=== PATIENT | male | born 2000 | race Caucasian/White ===

== ENCOUNTER 2020-02-29 21:56 | Emergency (ER) | payer MEDICAID, SELFPAY ==
[2020-02-29 22:07] VITALS: BP 162/99; PULSE 110; RESP 22; TEMP 36.8; O2SAT 96; BMI 94.3
--- NOTE | 2020-02-29 22:12 | XR_ITS ---
PROCEDURE: XR CHEST PORTABLE CLINICAL HISTORY: cough COMPARISON: CR CXR CHEST(2 VIEWS-NOT PORTABLE) from 03/20/2011 FINDINGS: The cardiomediastinal silhouette and pulmonary vascularity are within normal limits. There are subtle ill-defined opacities in the right infrahilar region and right lower lobe suggestive an early pneumonic infiltrate. Right upper lung field and left lung stewart are clear. No pleural fluid. IMPRESSION: Probable early bronchopneumonia right lower lobe Dictated by: Dr. Sebastien Bui MD 03/01/2020 08:12 Dr. Sebastien Bui MD in [place] 03/01/2020 08:12
--- NOTE | 2020-02-29 22:21 | HMH.EDGENADL ---
ED Disposition Clinical Impression: Asthma with exacerbation Qualifiers: Asthma severity: mild Asthma persistence: unspecified Qualified Code(s): J45.901 - Unspecified asthma with (acute) exacerbation Disposition: Home, Self-Care Condition on Discharge: Good Instructions: DI for Shortness of Breath Referrals: PCP,No [Primary Care Provider] - - Critical Care Critical Care Time: No Attestation: On 02/29/20, the high probability of a clinically significant, sudden or life threatening deterioration of the following system(s) required my full and direct attention, intervention and personal management. The time I documented below is in addition to time spent performing reported procedures but includes the following listed in this critical care notation. Medical Decision Making - Medical Records Medical records reviewed: Yes: I reviewed the patient's medical records. - Nadir Inquiry Pt receiving controlled substance: No Vital Signs: 02/29/20 22:07 02/29/20 22:54 Temperature 98.2 F 98.2 F Temperature Source Oral Oral Pulse Rate 110 H Pulse Rate [Right Brachial] 110 H Respiratory Rate 22 18 Blood Pressure 169/125 H Blood Pressure [Right Arm] 162/99 H Blood Pressure Mean [Right Arm] 120 Blood Pressure Source Automatic Cuff Blood Pressure Source [Right Arm] Automatic Cuff Blood Pressure Position Sitting Blood Pressure Position [Right Arm] Sitting 02 Sat by Pulse Oximetry 96 Oxygen Delivery Method Room Air Room Air Orders (Tests/Meds): ED MEDICATIONS Discontinued Medications Generic Name Dose Route Start Last Admin Trade Name Freq PRN Reason Stop Dose Admin Albuterol Sulfate 6 puffs 02/29/20 22:12 02/29/20 22:24 Albuterol-Hfa 90mcg/Puff Inhaler 8gm IH 02/29/20 22:13 6 puffs ONCE ONE Administration Dexamethasone 10 mg 02/29/20 22:12 02/29/20 22:42 Dexamethasone 4mg Tablet PO 02/29/20 22:13 Not Given ONCE ONE Dexamethasone 12 mg 02/29/20 22:26 02/29/20 22:27 Dexamethasone 4mg Tablet PO 02/29/20 22:27 12 mg ONCE ONE Administration Miscellaneous 1 unit 02/29/20 22:12 02/29/20 22:25 Aerochamber/Optihaler MC 02/29/20 22:13 1 unit ONCE ONE Administration ORDERS Category Date Time Status CXR --portable [XR chest portable] Stat Exams 02/29/20 22:12 Taken Covid-19 Nasal PCR Sendout P&C Routine Lab 02/29/20 22:38 Received Medical Decision Narrative: No history of asthma presenting for shortness of breath. Patient recent URI, given his symptoms we will test him for coronavirus 19. Patient has had worsening shortness of breath the past 2 days, patient is otherwise healthy, denies any chest pain. Patient has exertional symptoms, physical exam he has wheezing bilaterally, with his history of asthma this is likely reactive airway disease exacerbation. Patient was given albuterol nebs, steroids and chest x-rays obtained due to chronicity of URI symptoms. On repeat examination patient chest x-ray demonstrated no focal consolidation concerning for pneumonia. Patient was improved on examination with no hypoxemia, tachycardia likely secondary due to medications on repeat vitals. Patient blood pressure was stable. Patient was discharged home with butyryl inhaler. Patient amenable to plan and will follow up with his primary care doctor for further work-up. General Adult HPI - General Stated complaint: SOA Time Seen by Provider: 02/29/20 22:00 Mode of Arrival: Ambulatory Limitations: No Limitations Description of Symptoms (Recalled from ER Triage Doc. by RN): SOA x 2 days, headache and light headed. - History of Present Illness HPI narrative: Male presenting for shortness of breath. Patient has had URI symptoms for the past 2 weeks,, patient has had shortness of breath has been worsening for the past 2 days. Patient has been out of his albuterol medication. Patient states that he has no fevers, chills, night sweats, chest pain. Patient has no
[2020-02-29 22:54] VITALS: BP 169/125; PULSE 110; RESP 18; TEMP 36.8; O2SAT 94
[2020-03-02 12:23] LABS: Covid-19 Nasal PCR Sendout P&C Negative
== END 2020-02-29 23:25 | disposition home or self-care (01) ==
PROVIDERS: Emergency Provider Emergency Medicine
DX: Z20.828 Contact with and (suspected) exposure to other viral communicable diseases (principal); J45.901 Unspecified asthma with (acute) exacerbation; F17.210 Nicotine dependence, cigarettes, uncomplicated
CPT/HCPCS: 71045; 99282; U0004

== ENCOUNTER 2020-03-25 23:54 | Inpatient (IN) | payer OTHER, SELFPAY ==
[2020-03-25 23:55] VITALS: BP 124/81; PULSE 142; RESP 24; TEMP 37.7; O2SAT 98; BMI 40.1
[2020-03-26] VITALS (27 sets, daily range): BP systolic 106–166; BP diastolic 47–90; PULSE 78–143; RESP 18–26; TEMP 36.8–37.7; O2SAT 88–97; BMI 40.4
--- NOTE | 2020-03-26 00:04 | PC.NURSE ---
Pt refuses IV and blood draw, states he don't trust anyone and his cousin got Razo Virus off the needle they put in him at another hospital.
--- NOTE | 2020-03-26 00:12 | XR_ITS ---
PROCEDURE: XR CHEST 2V CLINICAL HISTORY: SOA Smoker COMPARISON: CR CXR CHEST(2 VIEWS-NOT PORTABLE) from 03/20/2011 CR XR CHEST PORTABLE from 02/29/[address] ANGIO CHEST from 03/26/2020 FINDINGS: The cardiomediastinal silhouette and pulmonary vascularity are within normal limits. No lobar consolidation or collapse. There is a 8 mm granuloma in the right midlung No acute bony abnormalities. IMPRESSION: No acute findings. Dictated by: Facundo Espitia MD 03/26/2020 06:56 Facundo Espitia MD in [facility] 03/26/2020 06:56
--- NOTE | 2020-03-26 00:12 | ECG_ITS ---
APPROVED REPORT Exam: Resting ECG HR:140 bpm ECG Measurements Heart Rate 140 AXES MN 124 P 80 QRSd 88 QRS 65 QT 284 T 259 QTc 433 Conclusion Sinus tachycardia Septal infarct, age undetermined T wave abnormality, consider lateral ischemia Abnormal ECG Electronically signed by : Sav Hauser, 03/26/2020 08:38:34
--- NOTE | 2020-03-26 00:13 | PC.NURSE ---
pt refused COVID
[2020-03-26 00:25] LABS: Microscopic, Urine URINE MICROSCOPIC (MICROSCOPIC)
[2020-03-26 00:28] LABS: Appearance,Urine CLEAR (Clear); Bilirubin,Urine Negative (Negative); Blood, Urine Negative (Negative); Color,Urine YELLOW (Yellow); Glucose,Urine (UA) Negative (Negative); Ketones,Urine Negative (Negative); Leukocyte Esterase,Urine Negative (Negative); Nitrate,Urine Negative (Negative); Protein,Urine Negative (Negative); Specific Gravity, Urine 1.025 (1.005-1.030); Urobilinogen,Urine 0.2 EU/dl (0.2)
--- NOTE | 2020-03-26 00:28 | HMH.EDSOB ---
ED Disposition Clinical Impression: Tobacco use, Acute viral syndrome Obesity Qualifiers: Obesity type: due to excess calories Obesity classification: adult class 3 (BMI >= 40) Serious obesity comorbidity presence: with serious comorbidity Body mass index: BMI 40.0-44.9 Qualified Code(s): E66.01 - Morbid (severe) obesity due to excess calories; Z68.41 - Body mass index [BMI]40.0-44.9, adult Respiratory failure with hypoxia Qualifiers: Chronicity: acute Qualified Code(s): J96.01 - Acute respiratory failure with hypoxia Disposition: Admitted as Observation Condition on Discharge: Fair Referrals: PCP,No [Primary Care Provider] - - Critical Care Critical Care Time: No Attestation: On 03/25/20, the high probability of a clinically significant, sudden or life threatening deterioration of the following system(s) required my full and direct attention, intervention and personal management. The time I documented below is in addition to time spent performing reported procedures but includes the following listed in this critical care notation. Medical Decision Making - Medical Records Medical records reviewed: Yes: I reviewed the patient's medical records. - Nadir Inquiry Pt receiving controlled substance: No Vital Signs: 03/25/20 23:55 03/26/20 00:30 03/26/20 01:00 Temperature 99.8 F H Temperature Source Oral Pulse Rate Pulse Rate [Right] 142 H 140 H 143 H Respiratory Rate 24 18 25 H Blood Pressure [Right Arm] 124/81 132/80 139/85 Blood Pressure Mean [Right Arm] 95 97 103 Blood Pressure Source [Right Arm] Automatic Cuff Automatic Cuff Blood Pressure Position [Right Arm] Supine Supine 02 Sat by Pulse Oximetry 98 95 94 L Oxygen Delivery Method Room Air Room Air Room Air Oxygen Flow Rate (LPM) 03/26/20 01:30 03/26/20 01:45 03/26/20 01:46 Temperature Temperature Source Pulse Rate 112 H 111 H Pulse Rate [Right] 139 H Respiratory Rate Blood Pressure [Right Arm] 131/87 Blood Pressure Mean [Right Arm] 101 Blood Pressure Source [Right Arm] Blood Pressure Position [Right Arm] 02 Sat by Pulse Oximetry 95 Oxygen Delivery Method Oxygen Flow Rate (LPM) 03/26/20 02:30 03/26/20 03:00 03/26/20 04:00 Temperature Temperature Source Pulse Rate Pulse Rate [Right] 130 H 130 H 120 H Respiratory Rate 24 20 24 Blood Pressure [Right Arm] 121/84 106/90 L 129/47 L Blood Pressure Mean [Right Arm] 96 95 74 Blood Pressure Source [Right Arm] Blood Pressure Position [Right Arm] 02 Sat by Pulse Oximetry 92 L 93 L 92 L Oxygen Delivery Method Nasal Cannula Oxygen Flow Rate (LPM) 2 03/26/20 04:30 03/26/20 05:30 03/26/20 06:30 Temperature Temperature Source Pulse Rate Pulse Rate [Right] 117 H 115 H 115 H Respiratory Rate 24 26 H 22 Blood Pressure [Right Arm] 121/67 116/62 135/87 Blood Pressure Mean [Right Arm] 85 80 103 Blood Pressure Source [Right Arm] Blood Pressure Position [Right Arm] 02 Sat by Pulse Oximetry 90 L 90 L 90 L Oxygen Delivery Method Room Air Nasal Cannula Room Air Oxygen Flow Rate (LPM) 3 - Lab Data Lab results reviewed: Yes: I reviewed the patient's lab results. Lab Results 03/26/20 00:20: Urine Opiates Screen Negative, Urine Methadone Screen Negative, Ur Barbituates Screen Negative, Ur Phencyclidine Scrn Negative, Ur Amphetamines Screen Negative, U Benzodiazepines Scrn Negative, Urine Cocaine Screen Negative, U Marijuana (THC) Screen Negative 03/26/20 00:20: Urine Color Yellow, Urine Appearance Clear, Urine pH 6.0, Ur Specific [place] 1.025, Urine Protein Negative, Urine Glucose (UA) Negative, Urine Ketones Negative, Urine Blood Negative, Urine Nitrate Negative, Urine Bilirubin Negative, Urine Urobilinogen 0.2, Ur Leukocyte Esterase Negative, Urine WBC Occasional 03/26/20 01:34: WBC 14.3 H, RBC 5.53, Hgb 15.5, Hct 46.8, MCV 84.6, MCH 28.0, MCHC 33.1, RDW 13.5, Plt Count 312, MPV 7.7, Neut % (Auto) 80.9 H, Lymph % (Auto) 12.3,
[2020-03-26 00:32] LABS: WBC,Urine Occasional #/hpf (0-3)
[2020-03-26 00:37] LABS: Barbiturates Screen,Urine Negative ng/ml (<200)
[2020-03-26 00:38] LABS: Amphetamine/Metha Screen,Urine Negative ng/ml (<1000); Benzodiazepines Screen,Urine Negative ng/ml (<200)
[2020-03-26 00:39] LABS: Cannabinoid Screen,Urine Negative ng/ml (<50)
[2020-03-26 00:40] LABS: Cocaine Screen,Urine Negative ng/ml (<300); Methadone Screen,Urine Negative ng/ml (<300)
[2020-03-26 00:41] LABS: Opiate Screen,Urine Negative ng/ml (<300); Phencyclidine Screen,Urine Negative ng/ml (<25)
[2020-03-26 01:45] LABS: Basophils # 0.1 K/mm3 (0-0.2); Basophils % 0.3 % (0.1-2.0); Eosinophils # 0.2 K/mm3 (0.0-0.4); Eosinophils % 1.2 % (0.1-12.0); Hematocrit 46.8 % (42.0-52.0); Hemoglobin 15.5 g/dL (14.1-18.0); Lymphocytes # 1.7 K/mm3 (0.7-4.5); Lymphocytes % 12.3 % (10-50); Mean Corpuscular HGB Conc 33.1 g/dL (31.8-35.4); Mean Corpuscular Volume 84.6 fl (80-94); Mean Platelet Volume 7.7 fl (7.4-10.4); Monocytes # 0.8 K/mm3 (0.1-1.0); Monocytes % 5.3 % (1.7-9.3); Neutrophils # 11.6 K/mm3 (1.8-7.8); Neutrophils % 80.9 % (37.0-80.0); Platelet Count 312 K/mm3 (142-424); Red Blood Count 5.53 M/mm3 (4.60-6.20); Red Cell Distribution Width 13.5 % (11.5-17.5); White Blood Count 14.3 K/mm3 (4.5-13.0)
--- NOTE | 2020-03-26 01:46 | CT_ITS ---
PROCEDURE: CT ANGIO CHEST CLINCIAL INDICATION: SOA Shortness of air dyspnea, smoker COMPARISON: CR XR CHEST 2V from 03/26/2020 TECHNIQUE: IV Contrast: 70ML Isovue 370 Axial images obtained with sagittal and coronal reformats. All CT scans at the facility use one or more dose reduction, viz: automated exposure control, ma/kV adjustment per patient size (including targeted exams where dose is matched to indication, i.e. head), or iterative reconstruction technique. FINDINGS: HEART AND MEDIASTINAL STRUCTURES: There is soft tissue density in the anterior mediastinum consistent with residual thymic tissue. No central or segmental pulmonary embolus identified. The peripheral pulmonary arteries are not well opacified due to motion and less than optimal bolus timing. No evidence of aortic aneurysm or dissection. LUNGS AND PLEURAL SPACES: Patchy area of ground-glass attenuation noted in the posterior segment of the right upper lobe and in the anteromedial basilar segment of the left lower lobe. There is evidence of old granulomatous disease. Patchy infiltrate also noted in the left lower lobe medially and within the lingula. There is mild bronchial thickening. Nodular density is present along the left major fissure at 11 by 5 mm. Patchy ground-glass infiltrate also noted in the left lower lobe laterally. No effusions. No cavitation. BONY STRUCTURES: No acute bony abnormalities apparent. UPPER ABDOMEN: Unremarkable. ADDITIONAL FINDINGS: Gynecomastia IMPRESSION: 1. No evidence of central pulmonary embolus. Peripheral pulmonary arteries not well evaluated due to respiratory motion and bolus timing 2. There are a few patchy ground-glass opacities in the right upper lobe, lingula, and left lower lobe. Commonly reported imaging features of Covid19 pneumonia are present. Other processes such is influenza pneumonia and organizing pneumonia, drug toxicity, connective tissue disease, and pulmonary hemorrhage can cause a similar imaging pattern. Dictated by: Facundo Espitia MD 03/26/2020 08:25 Facundo Espitia MD in [place] 03/26/2020 08:25
[2020-03-26 01:51] LABS: Chloride 104 mmol/L (98-107); Potassium 3.5 mmoL/L (3.5-5.1); Sodium 140 mmol/L (136-145)
[2020-03-26 01:53] LABS: Alanine Aminotransferase 23 U/L (12-78); Aspartate Amino Transferase 22 U/L (17-59); Bilirubin,Unconjugated 0.1 mg/dL (0.0-1.1); Blood Urea Nitrogen 12 mg/dl (9-20); Creatinine Clearance Estimated 235 mL/min (50-200); Estimated Glomerular Filt Rate 108 ml/min (>60); GFR (African American) 130 ML/MIN (>60)
[2020-03-26 01:54] LABS: Albumin Level 4.7 g/dl (3.5-5.0); Alkaline Phosphatase 89 U/L (38-126); Bilirubin,Direct 0.2 mg/dl (0.0-0.4); Bilirubin,Indirect 0.1 mg/dL (0.0-0.9); Bilirubin,Total 0.3 mg/dl (0.2-1.3); Calcium 9.6 mg/dl (8.4-10.2); Carbon Dioxide 30 mmol/L (22.0-30.0); Glucose 119 mg/dl (74-100); Total Protein,Serum 8.2 g/dl (6.3-8.2)
[2020-03-26 01:59] LABS: C-Reactive Protein 18.2 mg/L (0-4)
[2020-03-26 02:02] LABS: Coronavirus 19 IgG Antibody Negative (Negative); Coronavirus 19 IgM Antibody Negative (Negative)
[2020-03-26 02:05] LABS: NT Pro Brain Natriuretic Pep. 42.2 pg/mL (0-125)
[2020-03-26 02:08] LABS: Troponin I < 0.01 ng/ml (0.00-0.034)
--- NOTE | 2020-03-26 02:08 | PC.NURSE ---
pt had 500 ml urine output
[2020-03-26 02:27] LABS: Erythrocyte Sedimentation Rate 13 mm/hr (0-15); Procalcitonin 0.074 ng/mL (0.0-2.0)
--- NOTE | 2020-03-26 02:40 | PC.NURSE ---
pt voided per urinal 1000ml
--- NOTE | 2020-03-26 02:57 | PC.NURSE ---
Lyndsey speaking to RANCHO at this time
--- NOTE | 2020-03-26 03:00 | PC.NURSE ---
pt voided 300ml
--- NOTE | 2020-03-26 04:20 | PC.NURSE ---
pt voided 300ml
[2020-03-26 05:06] LABS: Adenovirus,PCR Not Detected (NotDetected); Bordetella Pertussis Not Detected (NotDetected); Chlamydophila Pneumoniae, PCR Not Detected (NotDetected); Coronavirus 19, PCR Not Detected (NotDetected); Coronavirus 229E Not Detected (NotDetected); Coronavirus NL63 Not Detected (NotDetected); Coronavirus OC43 Not Detected (NotDetected); Coronovirus HKU1,PCR Not Detected (NotDetected); Human Metapneumovirus Not Detected (NotDetected); Influenza A, PCR Not Detected (NotDetected); Influenza AH1, 2009 Not Detected (NotDetected); Influenza AH1, PCR Not Detected (NotDetected); Influenza AH3,PCR Not Detected (NotDetected); Influenza B, PCR Not Detected (NotDetected); Mycoplasma Pneumoniae, PCR Not Detected (NotDetected); Parainfluenza 1, PCR Not Detected (NotDetected); Parainfluenza 2, PCR Not Detected (NotDetected); Parainfluenza 3, PCR Not Detected (NotDetected); Parainfluenza 4, PCR Not Detected (NotDetected); Respiratory Syncytial Virus Not Detected (NotDetected)
[2020-03-26 05:16] LABS: Troponin I < 0.01 ng/ml (0.00-0.034)
[2020-03-26 05:41] LABS: ABG Base Excess -1.9 mmol/L (-2.4-2.3); ABG Oxygen Saturation 89 % (90-100); ABG PCO2 46.2 mmhg (35.0-45.0); ABG PH 7.33 mmol/L (7.35-7.45); ABG PO2 57.6 mmhg (80-100); ABG TCO2 25.4 mmhg (23-27)
[2020-03-26 05:44] LABS: Allen's Test Acceptable; Oxygen 3L %; Source Right Radial
[2020-03-26 06:24] LABS: Rhinovirus/Enterovirus Detected (NotDetected)
--- NOTE | 2020-03-26 08:00 | PC.NURSE ---
report given to TRACE Jimenez at this time.
--- NOTE | 2020-03-26 08:08 | PC.NURSE ---
Pt arrived to the floor at this time.
[2020-03-26 08:17] LABS: Mycoplasma Pneumo IGM (Rapid) Non-Reactive (Non-Reactiv)
--- NOTE | 2020-03-26 11:24 | HMH.HP ---
*Admission Date: 03/26/20 *Chief complaint: SOA *History of present illness: Mr. Kate is an obese 19-year-old male with history of asthma, not on regular therapy who presented with respiratory distress to the ER today. States he has been feeling ill for the past 3 to 4 days but felt really short of breath starting yesterday. On arrival to the ER he was noted to be hypoxic and in respiratory distress. Significant restriction of airflow on exam. Chest imaging showing hyper inflation and air trapping concerning for asthma exacerbation. Started on nebulizer treatment and supplemental oxygen. Received a dose of steroid in the ER. Patient admitted to medicine for respiratory failure and further management. On exam after arriving to the floor, patient is quite fatigued but answers questions appropriately. States he is breathing somewhat better but is still quite tight on exam. Denies nausea, vomiting, fever, chest pain. Has not smoked in 24 to 48 hours due to inability to breathe. Had an old Combivent inhaler at home that he has used a few times with no significant benefit. Tried to get into see his primary care doctor (Dr. Monroy) but was unable to get in as he is not excepting new patients . Appears he has not seen his primary care doctor in quite some time. [facility] History I have reviewed the patient's past medical history: Yes Medical History: Denies:: Cancer, Diabetes Mellitus Type 1, Diabetes Mellitus Type 2, MRSA *Have you ever received a pneumonia vaccine?: No *Have you received a flu vaccine this season?: No Amputation: No - *Social History Smoking Status: Current every day smoker Tobacco Type: cigarettes # Packs/Day (cigarettes): 1 Alcohol Intake: never *Occupational Status:: unemployed *Travel in the last 8 weeks: None Family Hx:: Unable to obtain Review of Systems - Review of Systems Review of systems:: pertinent systems reviewed and negative unless documented below (14 point review of systems performed, pertinent positives and negatives as per HPI) - *Neurologic Denies headache(s), Denies seizure-like activity Meds Home Medications Medication Instructions Recorded Confirmed Type Albuterol Sulfate [Albuterol 18 gm IH Q4-6H PRN 03/26/20 03/26/20 History Sulfate Hfa] Allergies Allergy/AdvReac Type Severity Reaction Status Date / Time shrimp AdvReac Verified 03/26/20 00:09 [place] Allergy Unknown Uncoded 02/18/17 15:06 Exam Vital signs and Labs for Last 24 Hours: Temp Pulse Resp BP Pulse Ox 99.5 F 116 H 23 135/58 L 90 L 03/26/20 08:35 03/26/20 10:26 03/26/20 08:35 03/26/20 08:35 03/26/20 10:26 Laboratory Results - last 24 hr 03/26/20 00:20: Urine Opiates Screen Negative, Urine Methadone Screen Negative, Ur Barbituates Screen Negative, Ur Phencyclidine Scrn Negative, Ur Amphetamines Screen Negative, U Benzodiazepines Scrn Negative, Urine Cocaine Screen Negative, U Marijuana (THC) Screen Negative 03/26/20 00:20: Urine Color Yellow, Urine Appearance Clear, Urine pH 6.0, Ur Specific [place] 1.025, Urine Protein Negative, Urine Glucose (UA) Negative, Urine Ketones Negative, Urine Blood Negative, Urine Nitrate Negative, Urine Bilirubin Negative, Urine Urobilinogen 0.2, Ur Leukocyte Esterase Negative, Urine WBC Occasional 03/26/20 01:34: WBC 14.3 H, RBC 5.53, Hgb 15.5, Hct 46.8, MCV 84.6, MCH 28.0, MCHC 33.1, RDW 13.5, Plt Count 312, MPV 7.7, Neut % (Auto) 80.9 H, Lymph % (Auto) 12.3, [place] % (Auto) 5.3, Eos % (Auto) 1.2, Baso % (Auto) 0.3, Neut # (Auto) 11.6 H, Lymph # (Auto) 1.7, [place] # (Auto) 0.8, Eos # (Auto) 0.2, Baso # (Auto) 0.1 03/26/20 01:34: Sodium 140, Potassium 3.5, Chloride 104, Carbon Dioxide 30, Anion Gap 10.0, BUN 12, Creatinine 0.90, Estimated Creat Clear 235, Estimated GFR 108, Est GFR ( Amer) 130, Glucose 119 H, Calcium 9.6, Total Bilirubin 0.3, Direct Bilirubin 0.2, Conjugated Bilirubin 0.0, Indirect Bilirubin 0.1, Unconjugated Bilirubin 0.1, AST 22, ALT 23, Alkaline P
--- NOTE | 2020-03-26 12:25 | P.CONPHA_ITS ---
[facility] Pharmacy VTE Monitoring - Patient Demographics Admission date: 03/26/20 Report Date: 03/26/20 Time: 12:25 Allergies/Adverse Reactions: Patient Allergies shrimp Adverse Reaction (Verified 03/26/20 00:09) [place] Allergy (Unknown, Uncoded 02/18/17 15:06) Height: 1.78 m Weight: 127.658 kg Patient Problems: Current Active Problems Asthma with exacerbation (Acute) Tobacco use (Chronic) Obesity (Acute) Acute viral syndrome (Acute) Respiratory failure with hypoxia (Acute) Obesity, Class III, BMI 40-49.9 (morbid obesity) (Chronic) Viral pneumonia (Acute) - VTE Risk Labs: VTE Related Lab Results Hgb 15.5 g/dL (14.1-18.0) 03/26/20 01:34 Hct 46.8 % (42.0-52.0) 03/26/20 01:34 Plt Count 312 K/mm3 (142-424) 03/26/20 01:34 BUN 12 mg/dl (9-20) 03/26/20 01:34 Creatinine 0.90 mg/dl (0.66-1.25) 03/26/20 01:34 Estimated Creat Clear 235 mL/min (50-200) 03/26/20 01:34 VTE Score: 1 - Prophylaxis VTE Prophylaxis Ordered?: Yes Types of VTE Prophylaxis: TEDS Knee High Location of Applied Device: Bilateral Lower Extremeties - VTE Diagnosis Confirmed Treatment or plan recommended: Continue Current Treatment
--- NOTE | 2020-03-26 12:25 | HMH.PHAINT ---
MEDICATION RECONCILIATION COMPLETED ON PATIENT USING EXTERNAL FILL HISTORY FROM PHARMACY. PATIENT STATES HE ONLY USES RESCUE INHALER WHEN NEEDED. -UMM SHAFERD
--- NOTE | 2020-03-26 13:23 | PC.NURSE ---
PER DR. HELTON PT IS IN STEPDOWN AT THIS TIME. AND TO INCREASE 02 TO 6LNC BC PT REFUSES TO WEAR VAPOTHERM.
--- NOTE | 2020-03-26 17:58 | PC.NURSE ---
pt adamant about leaving. myself, and warehouse logistics manager John Flores rn, educated pt on the risk of leaving. md mayorga states he is coming to hospital to speak with pt.
--- NOTE | 2020-03-26 19:30 | HMH.DCSUM ---
General - General Admission date:: 03/26/20 Discharge date: 03/26/20 HPI HPI: Mr. Kate is an obese 19-year-old male with history of asthma, not on regular therapy who presented with respiratory distress to the ER today. States he has been feeling ill for the past 3 to 4 days but felt really short of breath starting yesterday. On arrival to the ER he was noted to be hypoxic and in respiratory distress. Significant restriction of airflow on exam. Chest imaging showing hyper inflation and air trapping concerning for asthma exacerbation. Started on nebulizer treatment and supplemental oxygen. Received a dose of steroid in the ER. Patient admitted to medicine for respiratory failure and further management. On exam after arriving to the floor, patient is quite fatigued but answers questions appropriately. States he is breathing somewhat better but is still quite tight on exam. Denies nausea, vomiting, fever, chest pain. Has not smoked in 24 to 48 hours due to inability to breathe. Had an old Combivent inhaler at home that he has used a few times with no significant benefit. Tried to get into see his primary care doctor (Dr. Monroy) but was unable to get in as he is not excepting new patients . Appears he has not seen his primary care doctor in quite some time. Hospital Course Hospital Course: Mr. Kate was admited with acute hypoxemic respiratory failure 2/2 asthma exacerbation from a viral pneumonia. Started on Supplemental O2, Dexamethasone, scheduled Nebs, and 2g magnesium IV x 1. Initial exam this morning after admission with somnolence and significant dyspnea. Responded to therapy through the day. When it came time for the patient's to leave at the end of visitation hours, pt became irrational and refused to stay if his was not allowed to stay. Extensive discussion by multiple members of the care team including Physician (myself), Nurse, and Principal Consultant with the patient and his in regard to his tenuous medical status, continued O2 requirements, and high risk for worsening respiratory failure were unsuccessful in convincing the patient of his necessity to stay for continued treatment. He was adamant that he was going home, even though he continued to require O2, if he could not have his stay. He stated he would come back if he got worse. Stated he felt better and was fine at home when he felt this good . Vital at time of discussion and decision to leave AMA were: RR 24, HR 125, SpO2 86% RA. Pt signed out AMA. Objective Vital signs: Temp Pulse Resp BP Pulse Ox 98.2 F 78 24 114/65 97 03/26/20 16:00 03/26/20 18:00 03/26/20 16:00 03/26/20 18:00 03/26/20 18:00 Narrative: dyspneic, agitated. Satting 93% on 4L NC O2; desatted to mid 80s on RA, tachypneic and tachycardic. Alert and oriented. Anxious with poor insight Results Labs on day of discharge: Labs from last 24 hours 03/26/20 03/26/20 03/26/20 05:31 05:01 04:48 WBC RBC Hgb Hct MCV MCH MCHC RDW Plt Count MPV Neut % (Auto) Lymph % (Auto) [place] % (Auto) Eos % (Auto) Baso % (Auto) Neut # (Auto) Lymph # (Auto) [place] # (Auto) Eos # (Auto) Baso # (Auto) ESR Specimen Source Right radial O2 % 3l ABG pH 7.33 L ABG pCO2 46.2 H ABG pO2 57.6 L ABG HCO3 24.0 ABG Total CO2 25.4 ABG O2 Saturation 89 L ABG Base Excess -1.9 Facundo Test Acceptable Sodium Potassium Chloride Carbon Dioxide Anion Gap BUN Creatinine Estimated Creat Clear Estimated GFR Est GFR ( Amer) Glucose Calcium Total Bilirubin Direct Bilirubin Conjugated Bilirubin Indirect Bilirubin Unconjugated Bilirubin AST ALT Alkaline Phosphatase Troponin I < 0.01 C-Reactive Protein NT-Pro-B Natriuret Pep Total Protein Albumin Procalcitonin Urine Color U
== END 2020-03-26 18:32 | disposition home or self-care (01) | DRG 189 ==
LOC: ER 03-26 07:12 → 2ND 03-26 10:35
PROVIDERS: Admitting Provider Internal Medicine Adolescent Medicine; Emergency Provider Emergency Medicine; Visit Provider Internal Medicine Adolescent Medicine
DX: J96.01 Acute respiratory failure with hypoxia (principal); J12.9 Viral pneumonia, unspecified; J45.901 Unspecified asthma with (acute) exacerbation; Z68.41 Body mass index [BMI] 40.0-44.9, adult; Z72.0 Tobacco use; E66.01 Morbid (severe) obesity due to excess calories
CPT/HCPCS: 71046; 71275; 80048; 80076; 80305; 81001; 82803; 83880; 84145; 84484; 85025; 85651; 86140; 86328; 86738; 87581; 87633; 87798; 93005; 94640; 96365; 96375; 99285; J0456; J2405; Q9967; U0003

== ENCOUNTER 2020-03-26 22:37 | Emergency (ER) | payer OTHER, SELFPAY ==
[2020-03-26 22:34] VITALS: BP 129/89; PULSE 120; RESP 26; TEMP 37.6; O2SAT 85; BMI 40.1
--- NOTE | 2020-03-26 22:42 | ECG_ITS ---
APPROVED REPORT Exam: Resting ECG HR:115 bpm ECG Measurements Heart Rate 115 AXES TN 122 P 76 QRSd 90 QRS 70 QT 324 T 65 QTc 448 Conclusion Sinus tachycardia Nonspecific T wave abnormality Abnormal ECG Electronically signed by : Sav Hauser, 03/27/2020 14:15:51
--- NOTE | 2020-03-26 22:42 | XR_ITS ---
PROCEDURE: XR CHEST 2V CLINICAL HISTORY: SOA Shortness of air, low O2, smoker COMPARISON: CR CXR CHEST(2 VIEWS-NOT PORTABLE) from 03/20/2011 CR XR CHEST PORTABLE from 02/29/[address] ANGIO CHEST from 03/26/2020 CR XR CHEST 2V from 03/26/2020 FINDINGS: Normal heart size. There has been interval development of subcutaneous emphysema in the neck on both sides and in the upper chest. No obvious pneumothorax.. Nodular opacity is present in the right midlung consistent with a granuloma. No lobar consolidation or collapse. Normal heart size. No acute bony abnormalities. IMPRESSION: Interval development of subcutaneous emphysema in the neck and upper chest. The ER was notified of this finding 03/28/2020 at 6:17 a.m. Dictated by: Facundo Espitia MD 03/27/2020 06:18 Facundo Espitia MD in [place] 03/27/2020 06:18
[2020-03-26 23:00] VITALS: BP 132/88; PULSE 108; RESP 24; O2SAT 95
[2020-03-26 23:15] LABS: Basophils % 0.1 % (0.1-2.0); Eosinophils # 0.2 K/mm3 (0.0-0.4); Eosinophils % 0.7 % (0.1-12.0); Hematocrit 47.9 % (42.0-52.0); Hemoglobin 16.3 g/dL (14.1-18.0); Lymphocytes # 1.3 K/mm3 (0.7-4.5); Lymphocytes % 5.2 % (10-50); Mean Corpuscular Hemoglobin 28.6 pg (27.0-31.2); Mean Corpuscular Volume 84.1 fl (80-94); Mean Platelet Volume 7.7 fl (7.4-10.4); Monocytes % 3.8 % (1.7-9.3); Neutrophils # 22.7 K/mm3 (1.8-7.8); Neutrophils % 90.2 % (37.0-80.0); Platelet Count 320 K/mm3 (142-424); Red Cell Distribution Width 13.4 % (11.5-17.5)
[2020-03-26 23:19] LABS: White Blood Count 25.2 K/mm3 (4.5-13.0)
[2020-03-26 23:20] LABS: MANUAL DIFFERENTIAL MANUAL DIFFERENTIAL (MANUAL DIFF)
[2020-03-26 23:30] VITALS: BP 139/88; PULSE 105; RESP 24; O2SAT 95
[2020-03-26 23:31] LABS: Alanine Aminotransferase 31 U/L (12-78); Albumin/Globulin Ratio 1.3 (1.1-1.8); Alkaline Phosphatase 96 U/L (38-126); Anion Gap 11.6 mEq/L (5-15); Aspartate Amino Transferase 63 U/L (17-59); Bilirubin,Total 0.4 mg/dl (0.2-1.3); Blood Urea Nitrogen 15 mg/dl (9-20); Calcium 10.3 mg/dl (8.4-10.2); Carbon Dioxide 28 mmol/L (22.0-30.0); Chloride 104 mmol/L (98-107); Creatinine Clearance Estimated 302 mL/min (50-200); Estimated Glomerular Filt Rate 144 ml/min (>60); GFR (African American) 174 ML/MIN (>60); Glucose 141 mg/dl (74-100); Potassium 4.6 mmoL/L (3.5-5.1); Sodium 139 mmol/L (136-145)
[2020-03-26 23:37] LABS: C-Reactive Protein 51.4 mg/L (0-4)
[2020-03-26 23:44] LABS: Erythrocyte Sedimentation Rate 10 mm/hr (0-15)
--- NOTE | 2020-03-26 23:44 | HMH.EDSOB ---
ED Disposition Clinical Impression: Acute viral syndrome Asthma with exacerbation Qualifiers: Asthma severity: moderate Asthma persistence: unspecified Qualified Code(s): J45.901 - Unspecified asthma with (acute) exacerbation Obesity Qualifiers: Obesity type: due to excess calories Obesity classification: adult class 3 (BMI >= 40) Serious obesity comorbidity presence: with serious comorbidity Body mass index: BMI 40.0-44.9 Qualified Code(s): E66.01 - Morbid (severe) obesity due to excess calories; Z68.41 - Body mass index [BMI]40.0-44.9, adult Disposition: Left Against Medical Advice Condition on Discharge: Fair Instructions: DI for Shortness of Breath Additional Instructions: use meds and see pcp for follow up this week and no smoking Referrals: PCP,No [Primary Care Provider] - - Critical Care Critical Care Time: No Attestation: On 03/26/20, the high probability of a clinically significant, sudden or life threatening deterioration of the following system(s) required my full and direct attention, intervention and personal management. The time I documented below is in addition to time spent performing reported procedures but includes the following listed in this critical care notation. Medical Decision Making - Medical Records Medical records reviewed: Yes: I reviewed the patient's medical records. - Andir Inquiry Pt receiving controlled substance: No Vital Signs: 03/26/20 22:34 03/26/20 23:00 03/26/20 23:30 Temperature 99.6 F Temperature Source Oral Pulse Rate Pulse Rate [Right] 120 H 108 H 105 H Respiratory Rate 26 H 24 24 Blood Pressure [Right Arm] 129/89 132/88 139/88 Blood Pressure Mean [Right Arm] 102 102 105 Blood Pressure Source [Right Arm] Automatic Cuff Automatic Cuff Blood Pressure Position [Right Arm] Supine Supine 02 Sat by Pulse Oximetry 85 L 95 95 Oxygen Delivery Method Room Air Nasal Cannula Nasal Cannula Oxygen Flow Rate (LPM) 2 2 03/27/20 00:00 03/27/20 00:30 03/27/20 01:00 Temperature Temperature Source Pulse Rate Pulse Rate [Right] 109 H 102 H 104 H Respiratory Rate 23 24 22 Blood Pressure [Right Arm] 127/84 131/80 141/70 H Blood Pressure Mean [Right Arm] 98 97 93 Blood Pressure Source [Right Arm] Automatic Cuff Automatic Cuff Automatic Cuff Blood Pressure Position [Right Arm] Supine Supine Supine 02 Sat by Pulse Oximetry 94 L 94 L 94 L Oxygen Delivery Method Nasal Cannula Nasal Cannula Nasal Cannula Oxygen Flow Rate (LPM) 2 2 2 03/27/20 01:30 03/27/20 01:52 Temperature Temperature Source Pulse Rate 113 H Pulse Rate [Right] 113 H Respiratory Rate 24 Blood Pressure [Right Arm] 137/78 Blood Pressure Mean [Right Arm] 97 Blood Pressure Source [Right Arm] Automatic Cuff Blood Pressure Position [Right Arm] Supine 02 Sat by Pulse Oximetry 88 L Oxygen Delivery Method Nasal Cannula Oxygen Flow Rate (LPM) 2 - Lab Data Lab results reviewed: Yes: I reviewed the patient's lab results. Lab Results 03/26/20 23:04: WBC 25.2 H* D, RBC 5.70, Hgb 16.3, Hct 47.9, MCV 84.1, MCH 28.6, MCHC 34.0, RDW 13.4, Plt Count 320, MPV 7.7, Neut % (Auto) 90.2 H, Lymph % (Auto) 5.2 L, [place] % (Auto) 3.8, Eos % (Auto) 0.7, Baso % (Auto) 0.1, Neut # (Auto) 22.7 H, Lymph # (Auto) 1.3, [place] # (Auto) 1.0, Eos # (Auto) 0.2, Baso # (Auto) 0.0, Total Counted 100, Neutrophils % (Manual) 80 H, Band Neutrophils % 6.0, Lymphocytes % (Manual) 12, Monocytes % (Manual) 2, Platelet Estimate Normal, RBC Morphology Normal 03/26/20 23:04: Sodium 139, Potassium 4.6 D, Chloride 104, Carbon Dioxide 28, Anion Gap 11.6, BUN 15, Creatinine 0.70 D, Estimated Creat Clear 302 H, Estimated GFR 144, Est GFR ( Amer) 174 D, Glucose 141 H, Calcium 10.3 H, Total Bilirubin 0.4, AST 63 H D, ALT 31 D, Alkaline Phosphatase 96, Troponin I < 0.01, C-Reactive Protein 51.4 H D, Total Protein 9.0 H, Albumin 5.0, Globulin 4.0 H, Albumin/Globulin Ratio 1.3 03/26/20 23:04: ESR 10 03/26/20 23:04: Procalcit
[2020-03-26 23:52] LABS: Procalcitonin 0.067 ng/mL (0.0-2.0)
[2020-03-26 23:54] LABS: Troponin I < 0.01 ng/ml (0.00-0.034)
[2020-03-27] VITALS: BP 127/84; PULSE 109; RESP 23; O2SAT 94
[2020-03-27 00:02] LABS: ABG Base Excess 0.7 mmol/L (-2.4-2.3); ABG HCO3 25.7 mmhg (22.0-26.0); ABG Oxygen Saturation 73 % (90-100); ABG PCO2 43.7 mmhg (35.0-45.0); ABG PH 7.39 mmol/L (7.35-7.45)
[2020-03-27 00:10] LABS: Allen's Test Acceptable; Oxygen 2L NC %; Source Right Radial
[2020-03-27 00:30] VITALS: BP 131/80; PULSE 102; RESP 24; O2SAT 94
[2020-03-27 01:00] VITALS: BP 141/70; PULSE 104; RESP 22; O2SAT 94
[2020-03-27 01:30] VITALS: BP 137/78; PULSE 113; RESP 24; O2SAT 88
[2020-03-27 01:32] LABS: Lymphocytes % 12 % (10-50); Monocytes % 2 % (2-9); Neutrophils % 80 % (42-76); Platelet Estimate Normal; RBC Morphology Normal; Total Cells Counted 100
[2020-03-27 01:52] VITALS: PULSE 113
--- NOTE | 2020-03-27 02:15 | PC.NURSE ---
took patient off oxygen at this time.
--- NOTE | 2020-03-27 02:17 | PC.NURSE ---
Lyndsey speaking to Eliezer at this time
--- NOTE | 2020-03-27 02:29 | PC.NURSE ---
Dr Solorio at bedside speaking with pt about admission, pt refuses to be admitted at this time, the dangers of leaving and the dangers of low oxygen level was explained to the pt by Dr Solorio. Pt states he understands and wants to leave AMA.
--- NOTE | 2020-03-27 02:34 | PC.NURSE ---
Respiratory therapist at bedside giving education on inhaler use with spacer.
[2020-03-27 02:36] LABS: Troponin I < 0.01 ng/ml (0.00-0.034)
--- NOTE | 2020-03-27 02:47 | PC.NURSE ---
Pt still insists on leaving even with a low oxygen level, the risks were again explained to pt of signing out AMA. Pt states he understands the danger and signed the AMA papers and left.
[2020-03-27 02:49] VITALS: BP 137/78; PULSE 113; RESP 24; TEMP 37.6; O2SAT 84
--- NOTE | 2020-03-27 02:52 | PC.NURSE ---
Pt DC'd his own IV and left AMA, refused DC vitals, last known vitals charted
--- NOTE | 2020-03-27 16:37 | PC.NURSE ---
attempted to call patient r/t x-ray findings. No answer
== END 2020-03-27 02:53 | disposition left against medical advice (07) ==
PROVIDERS: Emergency Provider Emergency Medicine
DX: B34.9 Viral infection, unspecified (principal); J45.901 Unspecified asthma with (acute) exacerbation; E66.01 Morbid (severe) obesity due to excess calories; F17.210 Nicotine dependence, cigarettes, uncomplicated; Z68.41 Body mass index [BMI] 40.0-44.9, adult
CPT/HCPCS: 71046; 80053; 82803; 84145; 84484; 85007; 85025; 85651; 86140; 93005; 96374; 96375; 99284

== ENCOUNTER 2020-11-07 12:50 | Emergency (ER) | payer OTHER, MEDICAID, SELFPAY ==
[2020-11-07 14:38] VITALS: BP 0/0; PULSE 0; RESP 0; TEMP -17.7; TEMP 0
== END 2020-11-07 14:39 | disposition left against medical advice (07) ==
LOC: UTC 12:53
PROVIDERS: Emergency Provider Nurse Practitioner Family
DX: Z53.21 Procedure and treatment not carried out due to patient leaving prior to being seen by health care provider (principal)

== ENCOUNTER 2021-09-30 16:53 | Emergency (ER) | payer OTHER, SELFPAY ==
[2021-09-30 16:53] VITALS: BP 144/90; PULSE 93; RESP 15; TEMP 37.1; O2SAT 97; BMI 37.6
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
--- NOTE | 2021-09-30 17:20 | PC.NURSE ---
Provided pt with dental balls.
[2021-09-30 17:27] VITALS: BP 139/90; PULSE 101; RESP 15; TEMP 37.1; O2SAT 94
== END 2021-09-30 17:31 | disposition home or self-care (01) ==
PROVIDERS: Emergency Provider Emergency Medicine
DX: K04.7 Periapical abscess without sinus (principal)
CPT/HCPCS: 99283

== ENCOUNTER 2021-11-24 22:43 | Emergency (ER) | payer OTHER, SELFPAY ==
[2021-11-24 22:44] VITALS: BP 137/97; PULSE 100; RESP 19; TEMP 36.8; O2SAT 98; BMI 37.3
--- NOTE | 2021-11-24 22:57 | CT_ITS ---
PROCEDURE INFORMATION: Exam: CT Head Without Contrast Exam date and time: 11/24/2021 11:35 PM Age: 21 years old Clinical indication: Mass, lump, or localized swelling; Face; Additional info: R mandibular tooth pain, retro-ocular pain TECHNIQUE: Imaging protocol: Computed tomography of the head without contrast. Radiation optimization: All CT scans at this facility use at least one of these dose optimization techniques: automated exposure control; mA and/or kV adjustment per patient size (includes targeted exams where dose is matched to clinical indication); or iterative reconstruction. COMPARISON: No relevant prior studies available. FINDINGS: Brain: No evidence of mass effect or midline shift. No focal areas of abnormal attenuation. The cash/white matter interfaces are preserved. The basal cisterns are patent. Cerebral ventricles: No ventriculomegaly. Paranasal sinuses: Visualized sinuses are unremarkable. No fluid levels. Mastoid air cells: Visualized mastoid air cells are well aerated. Bones/joints: No acute fracture. Temporomandibular joint are unremarkable. Soft tissues: Mild subcutaneous fat stranding and soft tissue swelling along the included portion of the right aspect of the face. No abscess collections identified in the included images. IMPRESSION: 1. No CT evidence of intracranial hemorrhage, mass effect, midline shift or hydrocephalus. 2. Mild subcutaneous fat stranding and soft tissue swelling along the included portion of the right aspect of the face. No abscess collections identified in the included images.
--- NOTE | 2021-11-24 22:57 | CT_ITS ---
PROCEDURE INFORMATION: Exam: CT Neck With Contrast Exam date and time: 11/24/2021 11:39 PM Age: 21 years old Clinical indication: Pain; Other: Tooth; Additional info: R mandible and tooth pain TECHNIQUE: Imaging protocol: Computed tomography of the neck with contrast. Radiation optimization: All CT scans at this facility use at least one of these dose optimization techniques: automated exposure control; mA and/or kV adjustment per patient size (includes targeted exams where dose is matched to clinical indication); or iterative reconstruction. Contrast material: ISOVUE; Contrast volume: 75 ml; Contrast route: IV; COMPARISON: CT HEAD/BRAIN WO CON 11/24/2021 11:35 PM FINDINGS: Paranasal sinuses: Minimal mucosal thickening of the maxillary sinuses bilaterally. Dental: Extensive dental erosions compatible with caries. Small periapical cysts along the root of the left 1st mandibular molar. Pharynx: Unremarkable. No significant tonsillar enlargement. Larynx: Unremarkable. Epiglottis is normal. Prevertebral and retropharyngeal spaces: Unremarkable. Salivary glands: Normal. Glands are normal in size. Thyroid: Normal. No enlarged or calcified nodules. Lymph nodes: Bilateral level 1 and level 2 reactive lymphadenopathy. Trachea: Visualized trachea is unremarkable. Lungs: Unremarkable as visualized. Bones/joints: Unremarkable. No acute fracture. Soft tissues: Fat stranding and subcutaneous soft tissue swelling noted along the right aspect of the face. No fluid collections identified. IMPRESSION: 1. Extensive dental erosions compatible with caries. Small periapical cysts along the root of the left 1st mandibular molar. 2. Fat stranding and subcutaneous soft tissue swelling noted along the right aspect of the face. No fluid collections identified. 3. Bilateral level 1 and level 2 reactive lymphadenopathy.
--- NOTE | 2021-11-24 22:57 | CT_ITS ---
PROCEDURE INFORMATION: Exam: CT Maxillofacial With Contrast Exam date and time: 11/24/2021 11:43 PM Age: 21 years old Clinical indication: Eye pain and face pain and jaw pain and maxilla pain; Right; Additional info: R mandibular tooth pain, retro-ocular pain R TECHNIQUE: Imaging protocol: Computed tomography of the face with contrast. Radiation optimization: All CT scans at this facility use at least one of these dose optimization techniques: automated exposure control; mA and/or kV adjustment per patient size (includes targeted exams where dose is matched to clinical indication); or iterative reconstruction. Contrast material: ISOVUE; Contrast volume: 75 ml; Contrast route: IV; COMPARISON: CT HEAD/BRAIN WO CON 11/24/2021 11:35 PM FINDINGS: Orbital cavities: Orbits are normal. Orbital contents are unremarkable. Bones/joints: No acute fracture. Paranasal sinuses: Mild mucosal thickening of the inferior aspect of the maxillary sinuses bilaterally. No air-fluid levels. Lymph nodes: Bilateral level 1 and level 2 reactive lymphadenopathy. Soft tissues: Unremarkable. Dental: Extensive dental erosions compatible with caries. IMPRESSION: 1. Extensive dental erosions compatible with caries. 2. No abscess collection identified. 3. Mild mucosal thickening of the inferior aspect of the maxillary sinuses bilaterally. 4. Bilateral level 1 and level 2 reactive lymphadenopathy.
--- NOTE | 2021-11-24 23:01 | HMH.EDGENADL ---
Discharge Plan Disposition Patient Disposition: Xfer Short-Term Hosp Chief Complaint: Dental/Oral Prescriptions Prescriptions: No Action amoxicillin-pot clavulanate 1 EACH tablet 500 mg PO TID Qty: 21 0RF chlorhexidine gluconate 473 ML mouthwash 15 ml MM BID Qty: 150 0RF albuterol sulfate 8.5 GM HFA aerosol inhaler 2 puffs IH Q4HP PRN (Reason: Shortness Of Breath Or Wheezing) Referrals Follow up/Referrals: Provider,Referral, MD [Primary Care Provider] - See instructions Clinical Impressions Clinical Impression: Change in vision, Dental caries Discharge ED Provider: Cordell Abdi General Adult HPI General Chief complaint: Dental/Oral Stated complaint: dental pain Time Seen by Provider: 11/24/21 23:02 History of Present Illness HPI narrative: Patient is a 21-year-old male with past medical history of prior dental caries who presents emergency department for evaluation of tooth pain, jaw pain, retro-ocular pain. Patient states that has been hurting for some time however over the last 48 hours he had acute worsening of his right mandibular molar. The jaw is tender to palpation, he has visual blurriness on the right, lancinating pain shooting from his jaw back towards his ear. Patient states he is able to range his neck, no vomiting, no other headache, no left visual blurriness, no other acute complaints at this time. Symptoms are refractory to Tylenol. Related Data Home Medications Medication Instructions Recorded Confirmed albuterol sulfate 90 mcg/actuation 2 puffs IH Q4HP PRN Shortness Of 03/26/20 03/26/20 aerosol inhaler Breath Or Wheezing Previous Rx's Medication Instructions Recorded amoxicillin 500 mg-potassium 500 mg PO TID #21 tabs 09/30/21 clavulanate 125 mg tablet chlorhexidine gluconate 0.12 % 15 ml mucous membrane BID #150 mL 09/30/21 mouthwash Allergies Allergy/AdvReac Type Severity Reaction Status Date / Time shrimp AdvReac Verified 03/26/20 00:09 [place] Allergy Unknown Uncoded 02/18/17 15:06 [facility] Social History Smoking Status: Current every day smoker tobacco type: cigarettes packs per day: 1 alcohol intake: never current occupational status: employed Travel in the last 8 weeks: None household members: significant other caffeine: No ROS Obtained: Yes All systems reviewed & no additional complaints except as documented Physical Exam General General appearance: alert and in no apparent distress Head Head exam: atraumatic and normocephalic Eye Eye exam: Present PERRL, EOMI and other (20/200R 20/70L) ENT ENT exam: Present mucous membranes moist and other (Dental carry of the right mandibular molar, exquisite to patient.) Neck Neck exam: Present normal inspection, full ROM and tenderness (Severe tenderness over the right angle of the mandible and right submandibular space) Chest Chest inspection: Present normal inspection and symmetric chest wall rise Respiratory Respiratory exam: Present normal lung sounds bilaterally; Absent respiratory distress Cardiovascular Cardiovascular exam: Present regular rate and normal rhythm Abdominal Exam Abdominal exam: Present soft; Absent tenderness Extremities Exam Extremities exam: Present normal inspection Neurological Exam Neurological exam: Present alert, oriented X3, CN II-XII intact and normal gait Psychiatric Psychiatric exam: Present normal affect Skin Skin exam: Present warm and dry Medical Decision Making Nadir Inquiry Pt receiving controlled substance: No Vital Signs: 11/24/21 22:44 Temperature 98.3 F Temperature Source Oral Pulse Rate [Right] 100 H Respiratory Rate 19 Blood Pressure [Right Arm] 137/97 H Blood Pressure Mean [Right Arm] 110 Blood Pressure Source [Right Arm] Automatic Cuff 02 Sat by Pulse Oximetry 98 Oxygen Delivery Method Room Air Lab Data Lab Results 11/24/21 23:22: WBC 10.1, RBC 5.47, Hgb 15.7, Hct 47.8, MCV 87.3, MCH 28.6, MCHC 32.8, RDW
[2021-11-24 23:27] VITALS: BMI 39.0
--- NOTE | 2021-11-24 23:32 | PC.NURSE ---
Patient states that he is allergic to shrimp but not shellfish, and has tolerated ct contrast in the past. Patient is being premedicated per md order with 20mg famotidine IV, 125mg solumedrol IV and 50mg benadryl Iv.
[2021-11-24 23:33] LABS: Basophils # 0.1 K/mm3 (0-0.2); Basophils % 1.2 % (0.1-2.0); Eosinophils # 0.2 K/mm3 (0.0-0.4); Eosinophils % 1.8 % (0.1-12.0); Hematocrit 47.8 % (42.0-52.0); Hemoglobin 15.7 g/dL (14.1-18.0); Lymphocytes # 2.9 K/mm3 (0.7-4.5); Lymphocytes % 28.6 % (10-50); Mean Corpuscular HGB Conc 32.8 g/dL (31.8-35.4); Mean Corpuscular Hemoglobin 28.6 pg (27.0-31.2); Mean Corpuscular Volume 87.3 fl (80-94); Mean Platelet Volume 7.8 fl (7.4-10.4); Monocytes # 0.6 K/mm3 (0.1-1.0); Monocytes % 5.7 % (1.7-9.3); Neutrophils # 6.3 K/mm3 (1.8-7.8); Neutrophils % 62.6 % (37.0-80.0); Platelet Count 390 K/mm3 (142-424); Red Blood Count 5.47 M/mm3 (4.60-6.20); Red Cell Distribution Width 13.9 % (11.5-17.5); White Blood Count 10.1 K/mm3 (4.8-10.8)
[2021-11-24 23:40] LABS: Anion Gap 12.9 mEq/L (5-15); Blood Urea Nitrogen 7 mg/dl (9-20); Calcium 9.5 mg/dl (8.4-10.2); Carbon Dioxide 30 mmol/L (22.0-30.0); Chloride 102 mmol/L (98-107); Creatinine Clearance Estimated 260 mL/min (50-200); Estimated Glomerular Filt Rate 121 ml/min (>60); GFR (African American) 146 ML/MIN (>60); Glucose 98 mg/dl (74-100); Potassium 3.9 mmoL/L (3.5-5.1); Sodium 141 mmol/L (136-145)
[2021-11-24 23:45] LABS: C-Reactive Protein 7.4 mg/L (0-4)
--- NOTE | 2021-11-25 00:50 | PC.NURSE ---
on phone with Dr. Gan, opthamology at .
[2021-11-25 01:00] VITALS: BP 124/75; PULSE 87; RESP 17; TEMP 36.8; O2SAT 97
--- NOTE | 2021-11-25 01:01 | PC.NURSE ---
called radiology to prepare disc of ct images for [facility]
--- NOTE | 2021-11-25 01:06 | PC.NURSE ---
pt refuses to be transferred to [facility], is demanding to leave. s/w pt, he continues to refuse transfer.
--- NOTE | 2021-11-25 01:06 | PC.NURSE ---
spoke with patient about transfer to [facility], patient refused and is choosing to leave AMA. [facility] notified.
== END 2021-11-25 01:30 | disposition short-term general hospital (02) ==
PROVIDERS: Emergency Provider Emergency Medicine
DX: H53.9 Unspecified visual disturbance (principal); K02.9 Dental caries, unspecified
CPT/HCPCS: 70450; 70487; 70491; 80048; 85025; 86140; 96374; 96375; 99284; Q9967

== ENCOUNTER 2021-12-17 16:26 | Emergency (ER) | payer OTHER, SELFPAY ==
[2021-12-17 16:27] VITALS: BP 149/107; PULSE 69; RESP 18; O2SAT 98; BMI 37.3
--- NOTE | 2021-12-17 17:27 | PC.NURSE ---
MS AT BEDSIDE
--- NOTE | 2021-12-17 17:29 | HMH.EDGENADL ---
Discharge Plan Disposition Patient Disposition: Home, Self-Care Prescriptions Prescriptions: New amoxicillin-pot clavulanate 875-125 mg tablet 1 tab PO BID Qty: 10 0RF No Action amoxicillin-pot clavulanate 1 EACH tablet 500 mg PO TID Qty: 21 0RF chlorhexidine gluconate 473 ML mouthwash 15 ml MM BID Qty: 150 0RF albuterol sulfate 8.5 GM HFA aerosol inhaler 2 puffs IH Q4HP PRN (Reason: Shortness Of Breath Or Wheezing) amoxicillin-pot clavulanate 875-125 mg tablet 1 tab PO BID Qty: 20 0RF Referrals Follow up/Referrals: Provider,Referral, MD [Primary Care Provider] - See instructions Clinical Impressions Clinical Impression: Dental caries Discharge ED Provider: Usman Arndt General Adult HPI General Chief complaint: Dental/Oral Stated complaint: toothache Time Seen by Provider: 12/17/21 16:45 Mode of Arrival: EMS Source of Information: Patient Limitations: No Limitations Description of Symptoms (Recalled from ER Triage Doc. by RN): c/o right side tooth pain that goes into his ear and causing blurry vision in his right eye. pain started 2 hours ago. History of Present Illness HPI narrative: Patient is a 21-year-old male who presents with right-sided tooth pain. He states that it is the same tooth that has bothered him for multiple weeks. He says he is try to get in with a dentist but has been unsuccessful. He says he does not have any transportation right now which is limiting him being able to get to dentist and other areas. He says that his pain is causing his vision in his eye to get blurry. Denies any numbness or tingling. Denies any pain with extraocular movement. Related Data Home Medications Medication Instructions Recorded Confirmed albuterol sulfate 90 mcg/actuation 2 puffs IH Q4HP PRN Shortness Of 03/26/20 03/26/20 aerosol inhaler Breath Or Wheezing Previous Rx's Medication Instructions Recorded amoxicillin 500 mg-potassium 500 mg PO TID #21 tabs 09/30/21 clavulanate 125 mg tablet chlorhexidine gluconate 0.12 % 15 ml mucous membrane BID #150 mL 09/30/21 mouthwash amoxicillin 875 mg-potassium 1 tab PO BID #20 tabs 11/25/21 clavulanate 125 mg tablet amoxicillin 875 mg-potassium 1 tab PO BID #10 tabs 12/17/21 clavulanate 125 mg tablet Allergies Allergy/AdvReac Type Severity Reaction Status Date / Time shrimp AdvReac Verified 03/26/20 00:09 [place] Allergy Unknown Uncoded 02/18/17 15:06 [facility] Social History Smoking Status: Current every day smoker tobacco type: cigarettes packs per day: 1 alcohol intake: never current occupational status: employed Travel in the last 8 weeks: None household members: significant other caffeine: No ROS Obtained: Yes All systems reviewed & no additional complaints except as documented A 14 point review of system was obtained otherwise negative except per HPI Physical Exam General General appearance: alert and in no apparent distress Head Head exam: atraumatic and normocephalic Eye Eye exam: Present PERRL, EOMI and other (20/200R 20/70L) ENT ENT exam: Present mucous membranes moist and other Expanded ENT Exam Teeth exam: Present dental caries and dental tenderness # Neck Neck exam: Present normal inspection, full ROM and tenderness (Severe tenderness over the right angle of the mandible and right submandibular space) Chest Chest inspection: Present normal inspection and symmetric chest wall rise Respiratory Respiratory exam: Present normal lung sounds bilaterally; Absent respiratory distress Cardiovascular Cardiovascular exam: Present regular rate and normal rhythm Abdominal Exam Abdominal exam: Present soft; Absent tenderness Extremities Exam Extremities exam: Present normal inspection Neurological Exam Neurological exam: Present alert, oriented X3, CN II-XII intact and normal gait Psychiatric Psychiatric exam: Present normal affect Skin Skin exam: Present warm and dry [employer]
[2021-12-17 18:05] VITALS: BP 140/98; PULSE 70; RESP 20; TEMP 36.7; O2SAT 99
== END 2021-12-17 18:05 | disposition home or self-care (01) ==
PROVIDERS: Emergency Provider Student in an Organized Health Care Education/Training Program
DX: K02.9 Dental caries, unspecified (principal)
CPT/HCPCS: 99283

== ENCOUNTER 2022-11-17 23:56 | Emergency (ER) | payer OTHER, SELFPAY ==
[2022-11-17 23:56] VITALS: BP 145/75; PULSE 70; RESP 20; TEMP 36.8; O2SAT 98; BMI 36.2
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
--- NOTE | 2022-11-18 00:08 | XR_ITS ---
PROCEDURE INFORMATION: Exam: XR Left Wrist Exam date and time: 11/18/2022 12:23 AM Age: 22 years old Clinical indication: Pain; Wrist; Left; Additional info: Punched a wall TECHNIQUE: Imaging protocol: Radiologic exam of the left wrist. Views: 3 or more views. COMPARISON: CR Hand L 11/18/2022 12:21 AM FINDINGS: Bones/joints: No acute fracture or malalignment. Soft tissues: Dorsal hand soft tissue swelling over the knuckles. IMPRESSION: Dorsal hand soft tissue swelling over the knuckles. No acute osseous findings.
--- NOTE | 2022-11-18 00:29 | PC.NURSE ---
in room talking with patient at this time/\
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
[2022-11-18 00:59] VITALS: BP 112/76; PULSE 69; RESP 17; TEMP 36.9; O2SAT 98
== END 2022-11-18 00:59 | disposition home or self-care (01) ==
PROVIDERS: Emergency Provider Emergency Medicine
DX: M79.642 Pain in left hand (principal); W22.8XXA Striking against or struck by other objects, initial encounter; F17.210 Nicotine dependence, cigarettes, uncomplicated
CPT/HCPCS: 73110; 73130; 99284

== ENCOUNTER 2023-02-12 21:56 | Emergency (ER) | payer OTHER, SELFPAY ==
[2023-02-12 21:54] VITALS: BMI 35.9
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
[2023-02-12 21:56] VITALS: BP 124/67; PULSE 81; RESP 16; TEMP 36.4; O2SAT 98; BMI 31.8
[2023-02-12 21:58] VITALS: BP 124/67; PULSE 83; O2SAT 98
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
--- NOTE | 2023-02-12 22:07 | PC.NURSE ---
Patient gone to CT at this time
[2023-02-13 00:03] VITALS: BP 131/75; PULSE 81; RESP 16; TEMP 36.4; O2SAT 99
[2023-02-13 00:04] VITALS: BP 128/84; PULSE 79; RESP 18; TEMP 36.4; O2SAT 97
== END 2023-02-13 00:05 | disposition home or self-care (01) ==
PROVIDERS: Emergency Provider Emergency Medicine
DX: S09.8XXA Other specified injuries of head, initial encounter (principal); R51.9 Headache, unspecified; F17.210 Nicotine dependence, cigarettes, uncomplicated; F10.20 Alcohol dependence, uncomplicated; W19.XXXA Unspecified fall, initial encounter
CPT/HCPCS: 70450; 72125; 99285

== ENCOUNTER 2023-02-23 16:12 | Emergency (ER) | payer OTHER, SELFPAY ==
[2023-02-23 16:15] VITALS: BP 152/110; PULSE 109; RESP 19; TEMP 36.8; O2SAT 98; BMI 33.7
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
--- NOTE | 2023-02-23 16:29 | ECG_ITS ---
APPROVED REPORT Exam: Resting ECG HR:91 bpm ECG Measurements Heart Rate 91 AXES NM 142 P 68 QRSd 100 QRS 64 QT 349 T 50 QTc 398 Conclusion SINUS RHYTHM NORMAL ECG UNCONFIRMED REPORT Electronically signed by : Sav Hauser MD 02/26/2023 09:05:47
[2023-02-23 16:42] LABS: Basophils # 0.1 K/mm3 (0-0.2); Basophils % 0.4 % (0.1-2.0); Eosinophils # 0.2 K/mm3 (0.0-0.4); Eosinophils % 1.2 % (0.1-12.0); Hematocrit 49.1 % (42.0-52.0); Hemoglobin 16.3 g/dL (14.1-18.0); Lymphocytes # 3.8 K/mm3 (0.7-4.5); Lymphocytes % 28.7 % (10-50); Mean Corpuscular HGB Conc 33.3 g/dL (31.8-35.4); Mean Corpuscular Hemoglobin 29.1 pg (27.0-31.2); Mean Corpuscular Volume 87.4 fl (80-94); Mean Platelet Volume 7.8 fl (7.4-10.4); Monocytes # 0.7 K/mm3 (0.1-1.0); Monocytes % 5.4 % (1.7-9.3); Neutrophils # 8.4 K/mm3 (1.8-7.8); Neutrophils % 64.3 % (37.0-80.0); Platelet Count 296 K/mm3 (142-424); Red Blood Count 5.61 M/mm3 (4.60-6.20); Red Cell Distribution Width 13.1 % (11.5-17.5)
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
[2023-02-23 16:49] LABS: Alanine Aminotransferase 24 U/L (12-78); Alkaline Phosphatase 59 U/L (38-126); Aspartate Amino Transferase 31 U/L (17-59); Bilirubin,Total 0.7 mg/dl (0.2-1.3); Blood Urea Nitrogen 10 mg/dl (9-20); Calcium 9.2 mg/dl (8.4-10.2); Carbon Dioxide 31 mmol/L (22.0-30.0); Chloride 105 mmol/L (98-107); Creatinine Clearance Estimated 192 mL/min (50-200); Estimated Glomerular Filt Rate 105 ml/min (>60); GFR (African American) 127 ML/MIN (>60); Glucose 76 mg/dl (74-100); Lipase 25 U/L (23-300)
[2023-02-23 16:50] LABS: Albumin Level 4.6 g/dl (3.5-5.0); Albumin/Globulin Ratio 1.4 (1.1-1.8); Anion Gap 7.8 mEq/L (5-15); Globulin 3.4 g/dL (1.3-3.2); Potassium 3.8 mmoL/L (3.5-5.1); Sodium 140 mmol/L (136-145)
[2023-02-23 17:01] LABS: Troponin I < 0.01 ng/ml (0.00-0.034)
[2023-02-23 17:30] VITALS: BP 123/72; PULSE 86; O2SAT 95
[2023-02-23 18:00] VITALS: BP 116/73; PULSE 89; O2SAT 96
[2023-02-23 18:22] VITALS: BP 116/73; PULSE 90; RESP 16; TEMP 36.6
== END 2023-02-23 18:22 | disposition home or self-care (01) ==
PROVIDERS: Emergency Provider Emergency Medicine; PCP Pediatrics
DX: R07.89 Other chest pain (principal); F17.210 Nicotine dependence, cigarettes, uncomplicated; V57.1XXA Passenger in pick-up truck or van injured in collision with fixed or stationary object in nontraffic accident, initial encounter
CPT/HCPCS: 70450; 71275; 74174; 80053; 83690; 84484; 85025; 93005; 96374; 99285; J0131; Q9967

== ENCOUNTER 2023-05-26 19:02 | Emergency (ER) | payer OTHER, SELFPAY ==
[2023-05-26 19:21] VITALS: BP 136/71; PULSE 97; RESP 16; TEMP 36.6; O2SAT 98; BMI 25.1
--- NOTE | 2023-05-26 19:28 | ED_ITS ---
<Statement entered by Cordell Abdi MD - 05/27/23 00:26> I was consulted by the [facility], and we discussed the complexity of the problems being addressed. I approved the treatment and management plan for this patient's care in the emergency department, thus performing a substantive portion of the medical decision making. Cordell Abdi MD Discharge Plan Disposition Patient Disposition: Xfer Other Condition: Serious Prescriptions Prescriptions: No Action methocarbamol 1,000 mg tablet 1,000 mg PO Q8H PRN (Reason: muscle spasm) Qty: 12 0RF Referrals Follow up/Referrals: Provider,Referral, MD [Primary Care Provider] - See instructions Clinical Impressions Clinical Impression: Left against medical advice Acute foreign body of left thumb Qualifiers: Encounter type: initial encounter Qualified Code(s): S60.352A - Superficial foreign body of left thumb, initial encounter Discharge ED Provider: Cordell Abdi General Adult HPI <MIRYAM Andrews - Last Filed: 05/26/23 23:35> General Chief complaint: Wound/Laceration Stated complaint: arrow in thumb Time Seen by Provider: 05/26/23 19:27 Mode of Arrival: Family Vehicle Limitations: No Limitations Description of Symptoms (Recalled from ER Triage Doc. by RN): arrow through finger History of Present Illness HPI narrative: Patient reports that he was utilizing a homemade bow to shoot old arrows that he found at a yard sale when 1 shattered. Patient was initially unaware of an injury but however he looked down and saw that he had a arrow impaled in the dorsum of his left thumb. Patient presented for evaluation. Related Data Previous Rx's Medication Instructions Recorded methocarbamol 1,000 mg tablet 1,000 mg PO Q8H PRN muscle spasm 02/23/23 #12 tabs Allergies Allergy/AdvReac Type Severity Reaction Status Date / Time shrimp AdvReac Verified 02/23/23 18:11 [place] Allergy Unknown Uncoded 02/18/17 15:06 PFSH <MIRYAM Andrews - Last Filed: 05/26/23 23:35> [facility] Disclaimer: The information contained in this section may have been updated after the patient was seen, as this information can be updated by other users. Social History Smoking Status: Unknown if ever smoked alcohol intake: never current occupational status: employed Travel in the last 8 weeks: None household members: significant other caffeine: No <MIRYAM Andrews - Last Filed: 05/26/23 23:35> ROS Obtained: Yes Systems reviewed as appropriate & no additional complaints except as documented Physical Exam <MIRYAM Andrews - Last Filed: 05/26/23 23:35> General General appearance: alert and in no apparent distress Respiratory Respiratory exam: Present normal lung sounds bilaterally Cardiovascular Cardiovascular exam: Present regular rate and normal rhythm Neurological Exam Neurological exam: Present alert and oriented X3 Other Other exam information: Patient has an arrow impaling the dorsum of his left thumb. The area appears to be not intact and there are fiberglass fibers fraying off the proximal end and the aero exits the thumb distally and 3 separate locations in 3 separate pieces. Patient has paresthesia on light palpation and range of motion testing is not done due to the significant presence of entire length foreign body Medical Decision Making <MIRYAM Andrews - Last Filed: 05/26/23 23:35> Medical Records Medical records reviewed: Yes I reviewed the patient's medical records. Nadir Inquiry Pt receiving controlled substance: No Vital Signs: 05/26/23 19:21 05/26/23 20:34 Temperature 97.9 F 97.9 F Temperature Source Oral Oral Pulse Rate 97 H Pulse Rate [Right Brachial] 97 H Respiratory Rate 16 16 Blood Pressure 136/71 Blood Pressure [Right Arm] 136/71 Blood Pressure Mean [Right Arm] 92 Blood Pressure Source [Right Arm] Automatic Cuff Blood Pressure Position [Right Arm] Sitting 02 Sat by Pulse Oximetry 98 Oxygen Delivery Method Room Air Orders (Tests/Meds): ED MEDICATIONS Discontinued Medications Generic Name Dose Route Start Last Admin Trade Name Freq PRN Reason Stop Dose Admin Cefazolin Sodium 2 gm/ Sodium 100 mls @ 200 mls/hr 05/26/23 20:15 Chloride IV 05/26/23 20:44 PREOP ONE Tetanus/Reduced Diphtheria/Acell Pertussis 0.5 ml 05/26/23 20:09 Tet/Diphth/Pert-Adult 0.5ml Syringe IM 05/26/23 20:10 .ONCE ONE ORDERS Category Date Time Status XR hand LT min 3V Stat Exams 05/26/23 19:36 Completed Medical Decision Narrative: In summary patient is a 22-year-old male who presents to the emergency department for evaluation of [place] of his thumb by shattered arrow. Patient is hemodynamically stable upon arrival, afebrile. Physical exam is remarkable for a shattered arrow that is impaling the dorsum of his left thumb. Patient has paresthesia on light palpation. Range of motion testing is unobtainable due to the presence of the impalement.. Differential diagnosis includes joint involvement versus tendinous injury versus ligamentous injury versus fiberglass contamination of the wound versus neurovascular injury etc. Initial workup will be conducted with plain films. Initial interventions include Toradol Tylenol. Given the traumatic cause of the injury I contacted the [facility] for consultation on patient management. Dr. Vega consistently accepted the patient in transfer for further management. <Cordell Abdi MD - Last Filed: 05/27/23 00:24> Vital Signs: 05/26/23 19:21 05/26/23 20:34 Temperature 97.9 F 97.9 F Temperature Source Oral Oral Pulse Rate 97 H Pulse Rate [Right Brachial] 97 H Respiratory Rate 16 16 Blood Pressure 136/71 Blood Pressure [Right Arm] 136/71 Blood Pressure Mean [Right Arm] 92 Blood Pressure Source [Right Arm] Automatic Cuff Blood Pressure Position [Right Arm] Sitting 02 Sat by Pulse Oximetry 98 Oxygen Delivery Method Room Air Orders (Tests/Meds): ED MEDICATIONS Discontinued Medications Generic Name Dose Route Start Last Admin Trade Name Freq PRN Reason Stop Dose Admin Cefazolin Sodium 2 gm/ Sodium 100 mls @ 200 mls/hr 05/26/23 20:15 Chloride IV 05/26/23 20:44 PREOP ONE Tetanus/Reduced Diphtheria/Acell Pertussis 0.5 ml 05/26/23 20:09 Tet/Diphth/Pert-Adult 0.5ml Syringe IM 05/26/23 20:10 .ONCE ONE ORDERS Category Date Time Status XR hand LT min 3V Stat Exams 05/26/23 19:36 Completed Medical Decision Narrative: In summary patient is a 22-year-old male who presents to the emergency department for evaluation of impalement of his thumb by shattered arrow. Patient is hemodynamically stable upon arrival, afebrile. Physical exam is remarkable for a shattered arrow that is impaling the dorsum of his left thumb. Patient has paresthesia on light palpation. Range of motion testing is unobtainable due to the presence of the impalement.. Differential diagnosis includes joint involvement versus tendinous injury versus ligamentous injury versus fiberglass contamination of the wound versus neurovascular injury etc. Initial workup will be conducted with plain films. Initial interventions include Toradol Tylenol. Given the traumatic cause of the injury I contacted the [facility] for consultation on patient management. Dr. Vega graciously accepted the patient in transfer for further management. Critical Care <MIRYAM Andrews - Last Filed: 05/26/23 23:35> Critical Care Time Critical Care Time: No
--- NOTE | 2023-05-26 19:36 | XR_ITS ---
PROCEDURE INFORMATION: Exam: XR Left Hand Exam date and time: 05/26/2023 7:32 PM Age: 22 years old Clinical indication: Injury or trauma; Other: Shot thumb with arrow; Puncture; Hand; left; Additional info: Arrow vs thumb TECHNIQUE: Imaging protocol: Radiologic exam of the left hand. Views: 3 or more views. COMPARISON: CR XR HAND LT MIN 3V 11/18/2022 12:21 AM FINDINGS: Bones/joints: Normal. Soft tissues: Normal. IMPRESSION: No acute findings.
--- NOTE | 2023-05-26 19:37 | PC.NURSE ---
call placed to rad, asked for images to be sent to [place]. v/o received from md margy for rad order
--- NOTE | 2023-05-26 20:26 | PC.NURSE ---
Pt advised ,e he was leaving we were taking to [facility] , Abdoulaye Torres informed me he was accepted to [facility] for transfer. Pt is not wiling to stay, given his images on disk to take with him. AMA signed Dr Torres aware.
[2023-05-26 20:34] VITALS: BP 136/71; PULSE 97; RESP 16; TEMP 36.6; O2SAT 98
== END 2023-05-26 20:36 | disposition other institution (70) ==
PROVIDERS: Emergency Provider Emergency Medicine
DX: S60.352A Superficial foreign body of left thumb, initial encounter (principal); W45.8XXA Other foreign body or object entering through skin, initial encounter; Z23 Encounter for immunization
CPT/HCPCS: 73130; 90471; 96365; 99285